=== PATIENT | male | born 1995 | race Caucasian/White ===

== ENCOUNTER 2018-06-07 23:00 | Emergency (ER) | payer OTHER ==
[2018-06-07 23:05] VITALS: BP 142/90; PULSE 114; RESP 18; TEMP 97
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
[2018-06-07] MEDS ORDERED: DIPH,PERTUS(ACELL)TETVAC-LF 0.5 ML VIAL IM ONE (23:26)
--- NOTE | 2018-06-07 23:49 | XR ---
EXAMINATION TYPE: XR knee 4V LT DATE OF EXAM: 06/07/2018 COMPARISON: NONE HISTORY: Knee pain TECHNIQUE: 4 views FINDINGS: I see no fracture nor dislocation. Joint spaces are normal. There is no sign of knee joint effusion. IMPRESSION: Negative left knee exam.
== END 2018-06-08 00:21 | disposition home or self-care (01) ==
LOC: EC 23:00
DX: S80.212A Abrasion, left knee, initial encounter (principal); S50.312A Abrasion of left elbow, initial encounter; F17.200 Nicotine dependence, unspecified, uncomplicated; Z23 Encounter for immunization; V43.52XA Car driver injured in collision with other type car in traffic accident, initial encounter; Y92.89 Other specified places as the place of occurrence of the external cause
CPT/HCPCS: 90471; 90715; 99284

== ENCOUNTER 2019-04-01 07:15 | Emergency (ER) | payer OTHER ==
[2019-04-01 07:23] VITALS: RESP 18; TEMP 98.5
[2019-04-01] MEDS ORDERED: KETOROLAC 60 MG/2 ML VIAL IM STA (07:24)
--- NOTE | 2019-04-01 07:49 | ED ---
General Adult HPI - General Chief complaint: Back Pain/Injury Stated complaint: chest pain Time Seen by Provider: 04/01/19 07:20 Source: patient, RN notes reviewed Mode of arrival: EMS Limitations: no limitations - History of Present Illness Initial comments: This is a 23-year-old male who presents emergency Department with right-sided thoracic pain. Patient states been hurting for 4 days. Patient states it hurts when he twists or bends. Patient states he has not had any injury that he knows of. Patient denies a cough patient denies shortness of breath per patient denies any anterior chest pressure. Patient denies any recent fever chills per patient denies any abdominal pain. Patient states the pain is on the right side of the thorax does go into the back a little bit. Patient denies any redness swelling or rashes in that area. - Related Data Previous Rx's Medication Instructions Recorded Ibuprofen [Motrin] 600 mg PO Q6HR PRN #20 tab 04/01/19 Allergies Allergy/AdvReac Type Severity Reaction Status Date / Time No Known Allergies Allergy Verified 04/01/19 08:04 Review of Systems ROS Statement: Those systems with pertinent positive or pertinent negative responses have been documented in the HPI. ROS Other: All systems not noted in ROS Statement are negative. Past Medical History Past Medical History: No Reported History History of Any Multi-Drug Resistant Organisms: None Reported Past Surgical History: No Surgical Hx Reported Past Psychological History: Anxiety Smoking Status: Current every day smoker Past Alcohol Use History: Occasional Past Drug Use History: Marijuana General Exam - General Exam Comments Initial Comments: GENERAL: Patient is well-developed and well-nourished. Patient is nontoxic and well-hy drated and is in mild distress. ENT: Neck is soft and supple. No significant lymphadenopathy is noted. Oropharynx is clear. Moist mucous membranes. Neck has full range of motion without eliciting any pain. EYES: The sclera were anicteric and conjunctiva were pink and moist. Extraocular movements were intact and pupils were equal round and reactive to light. Eyelids were unremarkable. PULMONARY: Unlabored respirations. Good breath sounds bilaterally. No audible rales rhonchi or wheezing was noted. CARDIOVASCULAR: There is a regular rate and rhythm without any murmurs gallops or rubs. Pain is not palpable however it can be elicited with him twisting either to the right or left. ABDOMEN: Soft and nontender with normal bowel sounds. SKIN: Skin is clear with no lesions or rashes and otherwise unremarkable. NEUROLOGIC: Patient is alert and oriented x3. Cranial nerves II through XII are grossly intact. Motor and sensory are also intact. Normal speech, volume and content. Symmetrical smile. MUSCULOSKELETAL: Normal extremities with adequate strength and full range of motion. LYMPHATICS: No significant lymphadenopathy is noted PSYCHIATRIC: Normal psychiatric evaluation. Limitations: no limitations Course Vital Signs 04/01/19 07:19 Temperature 98.5 F Pulse Rate 82 Respiratory 18 Rate Blood Pressure 143/117 O2 Sat by Pulse 96 Oximetry Medical Decision Making - Medical Decision Making EKG shows normal sinus rhythm at 82 bpm MN interval is 124 QRS is 96 QT interval 372 QTC is 434 per patient's EKG shows no ST segment elevation or depression or T wave abnormalities are noted. Disposition Clinical Impression: Chest wall pain Disposition: HOME SELF-CARE Condition: Good Prescriptions: Ibuprofen [Motrin] 600 mg PO Q6HR PRN #20 tab PRN Reason: For pain Is patient prescribed a controlled substance at d/c from ED?: No Referrals: Evelyn Fink MD [Primary Care Provider] - 1-2 days Time of Disposition: 08:12
--- NOTE | 2019-04-01 07:55 | XR ---
EXAMINATION TYPE: XR chest 2V DATE OF EXAM: 04/01/2019 COMPARISON: NONE HISTORY: Mid chest pain into back for 3 days. TECHNIQUE: Frontal and lateral views of the chest are obtained. FINDINGS: There is no focal air space opacity, pleural effusion, or pneumothorax seen. The cardiac silhouette size is within normal limits. The osseous structures are intact. IMPRESSION: No acute process.
[2019-04-01 08:24] VITALS: BP 119/82; PULSE 79
== END 2019-04-01 08:22 | disposition home or self-care (01) ==
LOC: EC 07:15
DX: R07.89 Other chest pain (principal); F17.200 Nicotine dependence, unspecified, uncomplicated
CPT/HCPCS: 93005; 71046; 99284; 96372; J1885

== ENCOUNTER → 2020-04-07 | Outpatient (CLI) | payer OTHER ==
--- NOTE | 2020-04-07 10:12 | US ---
EXAMINATION TYPE: US abdomen complete DATE OF EXAM: 04/07/2020 COMPARISON: NONE CLINICAL HISTORY: 24-year-old male R10.13 Epigastric pain; R12 Heartburn. Nausea. TECHNIQUE: Multiple sonographic images of the abdomen are obtained. FINDINGS: EXAM MEASUREMENTS: Liver Length: 15.4 cm Gallbladder Wall: 0.3 cm CBD: 0.4 cm Spleen: 10.7 cm Right Kidney: 9.9 x 4.0 x 5.4 cm Left Kidney: 11.3 x 5.3 x 4.8 cm Railroad Operating Engineer notes: *Technical limitations due to patient's body habitus and large amount of overlyin g bowel content Pancreas: Obscured by bowel gas Liver: Slightly coarsened and echogenic appearance. No focal lesion. Gallbladder: no evidence of stones Evidence for sonographic Ac's sign: no CBD: wnl Spleen: wnl Right Kidney: no evidence of hydronephrosis Left Kidney: no evidence of hydronephrosis Upper IVC: wnl Abd Aorta: wnl IMPRESSION: 1. Slightly coarsened and echogenic appearance of the liver. Correlate for possible underlying mild h epatic steatosis. 2. No gallstones or biliary ductal dilatation.
== END | disposition home or self-care (01) ==
LOC: RADUSWWP 07:51
PROVIDERS: ATTEND Family Medicine
DX: R93.2 Abnormal findings on diagnostic imaging of liver and biliary tract (principal)
CPT/HCPCS: 76700

== ENCOUNTER 2023-08-07 17:23 | Emergency (ER) | payer OTHER ==
[2023-08-07 18:14] LABS: Basophils # (A) 0.1 k/uL (0-0.2); Basophils % (A) 1 %; Eosinophils # (A) 0.1 k/uL (0-0.7); Eosinophils % (A) 1 %; HCT 51.9 % (39.0-53.0); HGB 17.1 gm/dL (13.0-17.5); Lymphocytes # (A) 3.6 k/uL (1.0-4.8); Lymphocytes % (A) 23 %; MCH 29.4 pg (25.0-35.0); MCHC 32.9 g/dL (31.0-37.0); MCV 89.4 fL (80.0-100.0); Mean Platelet Volume 10.2; Monocytes # (A) 0.6 k/uL (0-1.0); Monocytes % (A) 4 %; Neutrophils # (A) 10.9 k/uL (1.3-7.7); Neutrophils % (A) 70 %; Platelet Count 193 k/uL (150-450); RBC 5.81 m/uL (4.30-5.90); RDW 13.9 % (11.5-15.5); WBC 15.6 k/uL (3.8-10.6)
[2023-08-07 19:02] LABS: INR 0.9 (<1.2); Partial Thromboplastin Time 28.6 sec (22.0-30.0)
[2023-08-07 19:28] LABS: ALT 97 U/L (4-49); AST 59 U/L (17-59); African American GFR (CKD) >90 (>60 ml/min/1.73 sqM); Albumin 4.6 g/dL (3.5-5.0); Alkaline Phosphatase 82 U/L (38-126); Anion Gap 13 mmol/L; Blood Urea Nitrogen 14 mg/dL (9-20); Calcium 9.8 mg/dL (8.4-10.2); Carbon Dioxide 20 mmol/L (22-30); Chloride 105 mmol/L (98-107); Glucose 97 mg/dL (74-99); Magnesium 2.1 mg/dL (1.6-2.3); Non-African American GFR(CKD) >90 (>60 ml/min/1.73 sqM); Potassium 4.4 mmol/L (3.5-5.1); Sodium 138 mmol/L (137-145); Total Bilirubin 0.5 mg/dL (0.2-1.3); Total Protein 7.6 g/dL (6.3-8.2)
--- NOTE | 2023-08-07 20:11 | XR ---
EXAMINATION TYPE: XR chest 2V DATE OF EXAM: 08/07/2023 6:08 PM CLINICAL INDICATION:Male, 27 years old with history of Chest Pain; [facility] COMPARISON: 04/01/2019 TECHNIQUE: XR chest 2V. Frontal PA and lateral views of the chest. FINDINGS: Lines/Tubes: None. Heart/mediastinum: Cardiomediastinal silhouette is well defined. Heart size is normal. Mediastinum appears normal. Pulmonary vascularity: Not increased, Lungs/Pleura: There is no evidence of pleural effusion, focal consolidation, or pneumothorax. Musculoskeletal: No acute osseous abnormality demonstrated in the limits of the exam. Other findings: None. IMPRESSION: No acute findings, or significant interval change.
--- NOTE | 2023-08-07 20:15 | ED ---
Chest Pain HPI - General Chief Complaint: Chest Pain Stated Complaint: SHARP CHEST PAINS Time Seen by Provider: 08/07/23 20:14 Source: patient Mode of arrival: wheelchair Limitations: no limitations - History of Present Illness Initial Comments: 27-year-old male presents the emergency Department today with complaint of sharp pain in the right upper chest since yesterday. Patient reports that he has had mild upper respiratory type symptoms with cough lately he's also recently began a workout routine an attempt to lose weight. Patient has no personal cardiac history. No history of asthma or COPD. He's had no chest wall trauma. Patient describes the pain as a sharp stabbing in the right upper chest. Occurs spontaneously without any specific types of provocation though symptoms to be worse with movement. Pain is described as severe and sharp lasting only seconds and then improving. - Related Data Previous Rx's Medication Instructions Recorded Ibuprofen [Motrin] 600 mg PO Q6HR PRN #20 tab 04/01/19 Ibuprofen [Motrin] 600 mg PO Q6HR PRN #30 tab 08/07/23 Allergies Allergy/AdvReac Type Severity Reaction Status Date / Time No Known Allergies Allergy Verified 08/07/23 17:46 Review of Systems ROS Statement: Those systems with pertinent positive or pertinent negative responses have been documented in the HPI. ROS Other: All systems not noted in ROS Statement are negative. Past Medical History Past Medical History: Hypertension History of Any Multi-Drug Resistant Organisms: None Reported Past Surgical History: No Surgical Hx Reported Past Psychological History: Anxiety Smoking Status: Current every day smoker Past Alcohol Use History: Daily Past Drug Use History: Marijuana General Exam - General Exam Comments Initial Comments: Physical Exam GENERAL: Patient is well-developed and well-nourished. Patient is nontoxic and well-hydrated Patient appears well but will at times clutch his right chest and flail forward stating that he is experiencing the right sided chest pain HENT: Normocephalic, Atraumatic. EYES: PERRL, EOMI PULMONARY: Unlabored respirations. CARDIOVASCULAR: RRR Warm and well perfused extremities ABDOMEN: Non-distended SKIN: No rashes or bruising : Deferred NEUROLOGIC: Alert and oriented Normal speech Normal gait MUSCULOSKELETAL: Moving all extremities with no apparent injury PSYCHIATRIC: No SI/HI Limitations: no limitations Course Vital Signs 08/07/23 08/07/23 08/07/23 17:43 21:07 22:32 Temperature 98.5 F 98.2 F Pulse Rate 101 H 94 96 Respiratory 16 18 18 Rate Blood Pressure 157/109 137/99 136/88 O2 Sat by Pulse 97 97 98 Oximetry Chest Pain MDM - MDM Was pt. sent in by a medical professional or institution (, SHELLY, PRODUCTION ARTIST, urgent care, hospital, or custodial...) When possible be specific @ -No Did you speak to anyone other than the patient for history (EMS, parent, family, police, friend...)? What history was obtained from this source @ -Patient's mother at bedside Did you review nursing and triage notes (agree or disagree)? Why? @ -I reviewed and agree with nursing and triage notes Were old charts reviewed (outside hosp., previous admission, EMS record, old EKG, old radiological studies, urgent care reports/EKG's, custodial records)? Report findings @ -No old charts were reviewed Differential Diagnosis (chest pain, altered mental status, abdominal pain women, abdominal pain men, vaginal bleeding, weakness, fever, dyspnea, syncope, headache, dizziness, GI bleed, back pain, seizure, CVA, palpatations, mental health)? @ -not applicable EKG interpreted by me (3pts min.). @ -As above X-rays interpreted by me (1pt min.). @ -No acute findings CT interpreted by me (1pt min.). @ -None done U/S interpreted by me (1pt. min.). @ -None done What testing was considered but not performed or refused? (CT, X-rays, U/S, labs)? Why? @ -None What meds were considered but not given or refused? Why? @ -None Did you discuss the management of the patient with other professionals (kaity marie i.e. SHELLY Jung, PRODUCTION ARTIST, lab, RT, psych nurse, social worker psychiatric, journal clerk, teacher, executive vice president and chief operating officer, medical case worker)? Give summary @ -No Was smoking cessation discussed for >3mins.? @ -No Was critical care preformed (if so, how long)? @ -No Were there social determinants of health that impacted care today? How? (Homelessness, low income, unemployed, alcoholism, drug addiction, transportation, low edu. Level, literacy, decrease access to med. care, retirement, rehab)? @ -No Was there de-escalation of care discussed even if they declined (Discuss DNR or withdrawal of care, Hospice)? DNR status @ -No What co-morbidities impacted this encounter? (DM, HTN, Smoking, COPD, CAD, Cancer, CVA, ARF, Chemo, Hep., AIDS, mental health diagnosis, sleep apnea, morbid obesity)? @ -Obesity Was patient admitted / discharged? Hospital course, mention meds given and route, prescriptions, significant lab abnormalities, going to OR and other pertinent info. @ -Discharged The patient was seen and evaluated, history is obtained from patient and mother. Patient with random sharp stabbing pain in the right upper quadrant that seems to be worse with movement. Not reproducible with palpation. No associated diaphoresis lightheadedness or shortness of breath. No cardiac history. No left-sided chest pain. No pain is worse with exertion and resolves with rest. Patient's workup was negative, d-dimer was negative, patient reported no improvement in his pain after Toradol he was given a single [place]. At this time workup is negative and he is stable for discharge home. Undiagnosed new problem with uncertain prognosis? @ -No Drug Therapy requiring intensive monitoring for toxicity (Heparin, Nitro, Insulin, Cardizem)? @ -No Were any procedures done? @ -No Diagnosis/symptom? @ -Atypical chest pain Acute, or Chronic, or Acute on Chronic? @ -default Uncomplicated (without systemic symptoms) or Complicated (systemic symptoms)? @ -default Side effects of treatment? @ -No Exacerbation, Progression, or Severe Exacerbation? @ -No Poses a threat to life or bodily function? How? (Chest pain, [place], [place], pneumonia, PE, COPD, DKA, ARF, appy, cholecystitis, CVA, Diverticulitis, Homicidal, Suicidal, threat to staff... and all critical care pts) @ -No Disposition Clinical Impression: Atypical chest pain, Anterior pleuritic pain Disposition: HOME SELF-CARE Condition: Stable Instructions (If sedation given, give patient instructions): Pleurisy (DC) Prescriptions: Ibuprofen [Motrin] 600 mg PO Q6HR PRN #30 tab PRN Reason: Pain Is patient prescribed a controlled substance at d/c from ED?: No Referrals: Evelyn Fink MD [Primary Care Provider] - 1-2 days
[2023-08-07] MEDS ORDERED: KETOROLAC 15 MG/ML 1 ML VIAL IM STA (21:09)
[2023-08-07 21:23] VITALS: RESP 18; TEMP 98.2
[2023-08-07] MEDS ORDERED: HYDROcodone/APAP 5-325MG 1 EACH TAB PO STA (22:13)
[2023-08-07 22:34] VITALS: BP 136/88; PULSE 96
== END 2023-08-07 22:37 | disposition home or self-care (01) ==
LOC: EC 17:23
DX: R07.89 Other chest pain (principal); I10 Essential (primary) hypertension; Z86.59 Personal history of other mental and behavioral disorders; F17.200 Nicotine dependence, unspecified, uncomplicated; F12.90 Cannabis use, unspecified, uncomplicated
CPT/HCPCS: 36415; 93005; 85379; 80053; 83735; 84484; 85025; 85610; 85730; 71046; 99285; 96372; J1885

== ENCOUNTER 2023-08-21 02:13 | Emergency (ER) | payer OTHER ==
--- NOTE | 2023-08-21 05:38 | ED ---
Psych HPI - General Source: police Mode of arrival: ambulatory <Susan Carvalho - Last Filed: 08/21/23 06:33> <Giovanny Villanueva - Last Filed: 08/21/23 10:14> - General Chief Complaint: Psychiatric Symptoms Stated Complaint: Petition Time Seen by Provider: 08/21/23 05:23 - History of Present Illness Initial Comments: When he 7-year-old male with history of depression, history of suicide attempts of the teen presents to the ER today with his mother and little brother for psychiatric evaluation. Patient states that about a month ago him and his fiance at that time experienced a miscarriage and shortly after she broke up with him. Patient reports that since that time is been drinking very heavily sometimes 2/5 a day. Patient states that he is feeling very depressed. When he is intoxicated patient does become suicidal is not made any attempts at suicide. Mom reports that they establish with the social workers [facility] yesterday but she became concerned for patient safety during the evening and brought in the hospital for evaluation. And states that while he was drinking he planned to kill himself by jumping into a [place] river. (Susan Carvalho) - Related Data Previous Rx's Medication Instructions Recorded Ibuprofen [Motrin] 600 mg PO Q6HR PRN #20 tab 04/01/19 Ibuprofen [Motrin] 600 mg PO Q6HR PRN #30 tab 08/07/23 Allergies Allergy/AdvReac Type Severity Reaction Status Date / Time No Known Allergies Allergy Verified 08/21/23 02:50 Review of Systems ROS Other: All systems not noted in ROS Statement are negative. <Susan Carvalho - Last Filed: 08/21/23 06:33> ROS Other: All systems not noted in ROS Statement are negative. <Giovanny Villanueva - Last Filed: 08/21/23 10:14> ROS Statement: Those systems with pertinent positive or pertinent negative responses have been documented in the HPI. Past Medical History Past Medical History: Hypertension History of Any Multi-Drug Resistant Organisms: None Reported Past Surgical History: No Surgical Hx Reported Past Psychological History: Anxiety, Depression Smoking Status: Current every day smoker Past Alcohol Use History: Abuse, Daily, Heavy Past Drug Use History: Marijuana <Susan Carvalho - Last Filed: 08/21/23 06:33> General Exam Limitations: no limitations <Susan Carvalho - Last Filed: 08/21/23 06:33> - General Exam Comments Initial Comments: Physical Exam GENERAL: Unkempt appearance Patient is well-developed and well-nourished. HENT: Normocephalic, Atraumatic. EYES: PERRL, EOMI PULMONARY: Unlabored respirations. CARDIOVASCULAR: RRR Warm and well perfused extremities ABDOMEN: Non-distended SKIN: No rashes or bruising : Deferred NEUROLOGIC: Alert and oriented Normal speech Normal gait MUSCULOSKELETAL: Moving all extremities with no apparent injury PSYCHIATRIC: Depressed, suicidal (Susan Carvalho) Course Vital Signs 08/21/23 08/21/23 02:47 09:00 Temperature 98.6 F 98.8 F Pulse Rate 115 H 100 Respiratory 20 18 Rate Blood Pressure 123/93 135/78 O2 Sat by Pulse 96 95 Oximetry Medical Decision Making <Susan Carvalho - Last Filed: 08/21/23 06:33> - Lab Data Result diagrams: 08/21/23 05:41 08/21/23 05:41 <Giovanny Villanueva D - Last Filed: 08/21/23 10:14> - Medical Decision Making Was pt. sent in by a medical professional or institution (SHELLY Jung, LIFT TRUCK MECHANIC, urgent care, hospital, or intermediate...) When possible be specific @ -No Did you speak to anyone other than the patient for history (EMS, parent, family, police, friend...)? What history was obtained from this source @ -Mother Did you review nursing and triage notes (agree or disagree)? Why? @ -[I reviewed and agree with nursing and triage notes] Were old charts reviewed (outside hosp., previous admission, EMS record, old EKG, old radiological studies, urgent care reports/EKG's, intermediate records)? Report findings @ -[No old charts were reviewed] Differential Diagnosis (chest pain, altered mental status, abdominal pain women, abdominal pain men, vaginal bleeding, weakness, fever, dyspnea, syncope, headache, dizziness, GI bleed, back pain, seizure, CVA, palpatations, mental health)? @ -Differential Mental Health Depression, anxiety, bipolar, psychosis, schizophrenia, borderline personality, situational depression, adjustment disorder, behavioral disorder, brain tumor, malingering, substance abuse, encephalopathy, medication reaction, dementia, hypothyroidism, degenerative neurologic disorder, lupus.... This is not meant to be all-inclusive list EKG interpreted by me (3pts min.). @ -[As above] X-rays interpreted by me (1pt min.). @ -[None done] CT interpreted by me (1pt min.). @ -[None done] U/S interpreted by me (1pt. min.). @ -[None done] What testing was considered but not performed or refused? (CT, X-rays, U/S, labs)? Why? @ -[None] What meds were considered but not given or refused? Why? @ -[None] Did you discuss the management of the patient with other professionals (professionals i.e. , PA, LIFT TRUCK MECHANIC, lab, RT, psych nurse, social services analyst, reaming machine tender, teacher, assignment officer, pillowcase folder)? Give summary @ -[No] Was smoking cessation discussed for >3mins.? @ -[No] Was critical care preformed (if so, how long)? @ -[No] Were there social determinants of health that impacted care today? How? (Homelessness, low income, unemployed, alcoholism, drug addiction, transportation, low edu. Level, literacy, decrease access to med. care, nursing home, rehab)? @ -Alcoholism Was there de-escalation of care discussed even if they declined (Discuss DNR or withdrawal of care, Hospice)? DNR status @ -[No] What co-morbidities impacted this encounter? (DM, HTN, Smoking, COPD, CAD, Cancer, CVA, ARF, Chemo, Hep., AIDS, mental health diagnosis, sleep apnea, morbid obesity)? @ -[facility] signed out to Dr Villanueva at 7am (Susan Carvalho) Patient care is signed out to me by previous shift physician, Dr. Carvalho. Briefly, patient with 27-year-old female presenting with suicidal ideation and suicidal behavior. Parents and also follow-up pending EPS recommendations. Was notified at 10:10 AM that EPS recommended discharge. With this disposition plan. Patient discharged. (Giovanny Villanueva) - Lab Data Lab Results 08/21/23 08/21/23 08/21/23 Range/Units 05:41 05:41 05:41 WBC 13.3 H (3.8-10.6) k/uL RBC 5.81 (4.30-5.90) m/uL Hgb 17.2 (13.0-17.5) gm/dL Hct 51.9 (39.0-53.0) % MCV 89.2 (80.0-100.0) fL MCH 29.7 (25.0-35.0) pg MCHC 33.2 (31.0-37.0) g/dL RDW 14.1 (11.5-15.5) % Plt Count 197 (150-450) k/uL MPV 10.6 Neutrophils % 52 % Lymphocytes % 42 % Monocytes % 4 % Eosinophils % 1 % Basophils % 1 % Neutrophils # 6.9 (1.3-7.7) k/uL Lymphocytes # 5.5 H (1.0-4.8) k/uL Monocytes # 0.5 (0-1.0) k/uL Eosinophils # 0.1 (0-0.7) k/uL Basophils # 0.1 (0-0.2) k/uL Manual Slide Review Performed Reactive Lymphocytes Present Sodium 141 (137-145) mmol/L Potassium 3.8 (3.5-5.1) mmol/L Chloride 103 (98-107) mmol/L Carbon Dioxide 21 L (22-30) mmol/L Anion Gap 17 mmol/L BUN 12 (9-20) mg/dL Creatinine 0.75 (0.66-1.25) mg/dL Est GFR (CKD-EPI)AfAm >90 (>60 ml/min/1.73 sqM) Est GFR (CKD-EPI)NonAf >90 (>60 ml/min/1.73 sqM) Glucose 139 H (74-99) mg/dL Calcium 9.0 (8.4-10.2) mg/dL Total Bilirubin 0.3 (0.2-1.3) mg/dL AST 56 (17-59) U/L ALT 115 H (4-49) U/L Alkaline Phosphatase 84 (38-126) U/L Total Protein 7.1 (6.3-8.2) g/dL Albumin 4.4 (3.5-5.0) g/dL Salicylates <1.0 mg/dL Acetaminophen <10.0 ug/mL Serum Alcohol 99 mg/dL Influenza Type A (PCR) Not Detected (Not Detectd) Influenza Type B (PCR) Not Detected (Not Detectd) RSV (PCR) Not Detected (Not Detectd) SARS-CoV-2 (PCR) Not Detected (Not Detectd) Disposition <Susan Carvalho P - Last Filed: 08/21/23 06:33> Is patient prescribed a controlled substance at d/c from ED?: No <Giovanny Villanueva - Last Filed: 08/21/23 10:14> Clinical Impression: Suicidal ideation Disposition: HOME SELF-CARE Condition: Fair Instructions (If sedation given, give patient instructions): Suicide Prevention (ED) Referrals: Evelyn Fink MD [Primary Care Provider] - 1-2 days
[2023-08-21 06:36] LABS: Basophils # (A) 0.1 k/uL (0-0.2); Basophils % (A) 1 %; Eosinophils # (A) 0.1 k/uL (0-0.7); Eosinophils % (A) 1 %; HCT 51.9 % (39.0-53.0); HGB 17.2 gm/dL (13.0-17.5); MCH 29.7 pg (25.0-35.0); MCHC 33.2 g/dL (31.0-37.0); MCV 89.2 fL (80.0-100.0); Mean Platelet Volume 10.6; Monocytes # (A) 0.5 k/uL (0-1.0); Monocytes % (A) 4 %; Neutrophils # (A) 6.9 k/uL (1.3-7.7); Neutrophils % (A) 52 %; Platelet Count 197 k/uL (150-450); RBC 5.81 m/uL (4.30-5.90); RDW 14.1 % (11.5-15.5); WBC 13.3 k/uL (3.8-10.6)
[2023-08-21 06:38] LABS: ALT 115 U/L (4-49); AST 56 U/L (17-59); Acetaminophen <10.0 ug/mL; African American GFR (CKD) >90 (>60 ml/min/1.73 sqM); Albumin 4.4 g/dL (3.5-5.0); Alkaline Phosphatase 84 U/L (38-126); Anion Gap 17 mmol/L; Blood Urea Nitrogen 12 mg/dL (9-20); Carbon Dioxide 21 mmol/L (22-30); Chloride 103 mmol/L (98-107); Glucose 139 mg/dL (74-99); Non-African American GFR(CKD) >90 (>60 ml/min/1.73 sqM); Potassium 3.8 mmol/L (3.5-5.1); Salicylate <1.0 mg/dL; Sodium 141 mmol/L (137-145); Total Bilirubin 0.3 mg/dL (0.2-1.3); Total Protein 7.1 g/dL (6.3-8.2)
[2023-08-21 06:41] LABS: Alcohol 99 mg/dL
[2023-08-21 06:42] LABS: Lymphocytes # (A) 5.5 k/uL (1.0-4.8)
[2023-08-21 08:05] LABS: Reactive Lymphocytes Present
[2023-08-21 08:06] LABS: Lymphocytes % (A) 42 %
[2023-08-21 09:24] VITALS: BP 135/78; PULSE 100; RESP 18; TEMP 98.8
== END 2023-08-21 11:30 | disposition home or self-care (01) ==
LOC: EC 02:13
DX: R45.851 Suicidal ideations (principal); I10 Essential (primary) hypertension; F17.200 Nicotine dependence, unspecified, uncomplicated; F12.90 Cannabis use, unspecified, uncomplicated; Z86.59 Personal history of other mental and behavioral disorders; Z20.822 Contact with and (suspected) exposure to COVID-19
CPT/HCPCS: 82075; 36415; 80053; 85025; 80143; 87636; 80179; 99285; G0480; 80320

== ENCOUNTER 2024-12-03 22:59 | Emergency (ER) | payer OTHER ==
--- NOTE | 2024-12-03 23:35 | ED ---
Chest Pain HPI - General Chief Complaint: Chest Pain Stated Complaint: Chest pain Time Seen by Provider: 12/03/24 23:20 Source: patient Mode of arrival: ambulatory Limitations: no limitations - History of Present Illness Initial Comments: This patient is a 29-year-old man who presents to have evaluation of pain along the sternal border bilaterally. He describes it as sharp, there is also tenderness when he presses there. He noted that his heart was racing. The patient has not noted any relieving factors. It is constant, mild intensity currently but it was moderate earlier today. Denies associated symptoms. Patient relates that he has had hypertension for about 4 years, it was untreated for part of that time but he has now established with physician and they are working on getting better blood pressure control for him. MD Complaint: chest pain -: hour(s) Onset: during rest Pain Location: substernal Pain Radiation: none Severity: mild Quality: aching, sharp Consistency: constant Improves With: nothing Worsens With: palpation, movement Treatments Prior to Arrival: none - Related Data Previous Rx's Medication Instructions Recorded Ibuprofen [Motrin] 600 mg PO Q6HR PRN #20 tab 04/01/19 Ibuprofen [Motrin] 600 mg PO Q6HR PRN #30 tab 08/07/23 Ibuprofen 800 mg PO Q8H #21 tab 12/04/24 Allergies Allergy/AdvReac Type Severity Reaction Status Date / Time No Known Allergies Allergy Verified 12/03/24 23:11 Review of Systems ROS Statement: Those systems with pertinent positive or pertinent negative responses have been documented in the HPI. ROS Other: All systems not noted in ROS Statement are negative. Constitutional: Denies: fever, chills, weakness Respiratory: Denies: cough, dyspnea Cardiovascular: Reports: chest pain, palpitations. Denies: orthopnea, edema, syncope Gastrointestinal: Denies: abdominal pain, nausea, vomiting, diarrhea Genitourinary: Denies: dysuria, hematuria Musculoskeletal: Denies: back pain Skin: Denies: rash Neurological: Denies: headache, weakness EKG Findings - EKG Results: EKG: interpreted by GIBRAN, sinus rhythm, normal QRS EKG shows: tachycardia (Rate 130 bpm) - Blocks, [place], Hypertrophy, ST Abn: QRS axis and voltage: right axis deviation (+90 to +180) Repolarization changes or abnormalities: nonspecific abnormality, ST segment, and/or T wave Past Medical History Past Medical History: Hypertension History of Any Multi-Drug Resistant Organisms: None Reported Past Surgical History: No Surgical Hx Reported Past Psychological History: Anxiety, Depression Smoking Status: Current every day smoker Past Alcohol Use History: Abuse, Daily, Heavy Past Drug Use History: Marijuana General Exam Limitations: no limitations General appearance: alert, in no apparent distress Head exam: Present: atraumatic, normocephalic Eye exam: Present: normal appearance. Absent: scleral icterus, conjunctival injection ENT exam: Present: normal oropharynx Neck exam: Present: normal inspection Respiratory exam: Present: normal lung sounds bilaterally, chest wall tenderness. Absent: respiratory distress, wheezes, rales, rhonchi, stridor, accessory muscle use Cardiovascular Exam: Present: normal rhythm, tachycardia, normal heart sounds. Absent: systolic murmur, diastolic murmur, rubs, gallop GI/Abdominal exam: Present: soft. Absent: distended, tenderness, guarding, rebound, rigid, mass, pulsatile mass Extremities exam: Present: normal inspection, normal capillary refill. Absent: pedal edema, calf tenderness Back exam: Present: normal inspection. Absent: CVA tenderness (R), CVA tenderness (L) Neurological exam: Present: alert Skin exam: Present: warm, dry, intact, normal color. Absent: rash Course Vital Signs 12/03/24 12/04/24 12/04/24 23:11 01:00 02:38 Temperature 97.6 F 98.0 F Pulse Rate 132 H 103 H 115 H Respiratory 18 10 L 18 Rate Blood Pressure 171/106 144/77 130/81 O2 Sat by Pulse 95 96 98 Oximetry Chest Pain MDM - MDM The patient had chest x-ray that I interpreted as negative for acute infiltrate, pneumothorax, congestive heart failure. Was pt. sent in by a medical professional or institution (, PA, REDIPPER, urgent care, hospital, or penitentiary...) When possible be specific @ -[No] Did you speak to anyone other than the patient for history (EMS, parent, family, police, friend...)? What history was obtained from this source @ -[No] Did you review nursing and triage notes (agree or disagree)? Why? @ -[I reviewed and agree with nursing and triage notes] Were old charts reviewed (outside hosp., previous admission, EMS record, old EKG, old radiological studies, urgent care reports/EKG's, penitentiary records)? Report findings @ -[No old charts were reviewed] Differential Diagnosis (chest pain, altered mental status, abdominal pain women, abdominal pain men, vaginal bleeding, weakness, fever, dyspnea, syncope, headache, dizziness, GI bleed, back pain, seizure, CVA, palpatations, mental health, musculoskeletal)? @ -[Differential Chest Pain: Stable Angina, Unstable Angina, STEMI, NSTEMI Aortic Dissection, Pneumothorax, Musculoskeletal, Esophageal Spasm GERD, Cholecystitis, Pancreatitis, Zoster, this is not meant to be an all-inclusive list. EKG interpreted by me (3pts min.). @ -[I interpreted as above] X-rays interpreted by me (1pt min.). @ -[I interpreted as above CT interpreted by me (1pt min.). @ -[None done] U/S interpreted by me (1pt. min.). @ -[None done] What testing was considered but not performed or refused? (CT, X-rays, U/S, labs)? Why? @ -[None] What meds were considered but not given or refused? Why? @ -[None] Did you discuss the management of the patient with other professionals (professionals i.e. , PA, REDIPPER, lab, RT, psych nurse, psych social worker, meter repairer helper, teacher, hospital chief financial officer, dependency case manager)? Give summary @ -[No] Was smoking cessation discussed for >3mins.? @ -[No] Was critical care preformed (if so, how long)? @ -[No] Were there social determinants of health that impacted care today? How? (Homelessness, low income, unemployed, alcoholism, drug addiction, transportation, low edu. Level, literacy, decrease access to med. care, longterm, rehab)? @ -[No] Was there de-escalation of care discussed even if they declined (Discuss DNR or withdrawal of care, Hospice)? DNR status @ -[No] What co-morbidities impacted this encounter? (DM, HTN, Smoking, COPD, CAD, Cancer, CVA, ARF, Chemo, Hep., AIDS, mental health diagnosis, sleep apnea, morbid obesity)? @ -[Hypertension Was patient admitted / discharged? Hospital course, mention meds given and route, prescriptions, significant lab abnormalities, going to OR and other pertinent info. @ -[Patient is a 29-year-old woman with history of hypertension presenting to have evaluation of chest pain. The patient history and physical is benign other than chronic hypertension which is elevated on arrival. The patient's workup is unremarkable and she did have good relief of symptoms and improvement in her blood pressure. At this point stable to have further evaluation and treatment as outpatient. Discussed return parameters Undiagnosed new problem with uncertain prognosis? @ -[No] Drug Therapy requiring intensive monitoring for toxicity (Heparin, Nitro, Insulin, Cardizem)? @ -[No] Were any procedures done? @ -[No] Diagnosis/symptom? @ -[Acute chest pain Acute on chronic hypertension Acute, or Chronic, or Acute on Chronic? @ -[ Uncomplicated (without systemic symptoms) or Complicated (systemic symptoms)? @ -[Uncomplicated Side effects of treatment? @ -[No] Exacerbation, Progression, or Severe Exacerbation? @ -[No] Poses a threat to life or bodily function? How? (Chest pain, [place], [place], pneumonia, PE, COPD, DKA, ARF, appy, cholecystitis, CVA, Diverticulitis, Homicidal, Suicidal, threat to staff... and all critical care pts) @ -[There is risk associated with chronic hypertension and have stressed that patient must follow-up to have this adequately treated also to have cardiology follow-up All treatments are based on ideal body weight as in ED triage Disposition Clinical Impression: Chest wall pain, Hypertension Disposition: HOME SELF-CARE Condition: Good Instructions (If sedation given, give patient instructions): Costochondritis (ED) Prescriptions: Ibuprofen 800 mg PO Q8H #21 tab Is patient prescribed a controlled substance at d/c from ED?: No Referrals: Evelyn Fink MD [Primary Care Provider] - 1-2 days
[2024-12-04] MEDS: SODIUM CHLORIDE 0.9% 1,000 ML IV ONE (00:58)
[2024-12-04 01:00] LABS: INR 0.9 (<1.2); Partial Thromboplastin Time 25.1 sec (22.0-30.0); Prothrombin Time 9.9 sec (10.0-12.5)
[2024-12-04] MEDS: ASPIRIN 81 MG PO STA (01:00)
[2024-12-04] MEDS: NITROGLYCERIN SL TABS 0.4 MG TAB SUBLINGUAL STA (01:01)
[2024-12-04] MEDS: LORazepam 2 MG/ML INJ IV STA (01:01)
[2024-12-04 01:11] LABS: ALT 61 U/L (4-49); AST 46 U/L (17-59); African American GFR (CKD) >90 (>60 ml/min/1.73 sqM); Albumin 4.1 g/dL (3.5-5.0); Alkaline Phosphatase 74 U/L (38-126); Anion Gap 9 mmol/L; Blood Urea Nitrogen 17 mg/dL (9-20); Calcium 9.3 mg/dL (8.4-10.2); Carbon Dioxide 24 mmol/L (22-30); Chloride 104 mmol/L (98-107); Glucose 106 mg/dL (74-99); Non-African American GFR(CKD) >90 (>60 ml/min/1.73 sqM); Potassium 4.1 mmol/L (3.5-5.1); Sodium 137 mmol/L (137-145); Total Bilirubin 0.5 mg/dL (0.2-1.3); Total Protein 6.8 g/dL (6.3-8.2)
[2024-12-04 01:18] LABS: Basophils # (A) 0.05 10*3/uL (0.00-0.10); Basophils % (A) 0.3 %; Eosinophils # (A) 0.14 10*3/uL (0.04-0.35); HCT 48.3 % (39.6-50.0); HGB 16.7 g/dL (13.0-17.0); Lymphocytes # (A) 5.46 10*3/uL (0.90-5.00); Lymphocytes % (A) 37.3 %; MCH 29.9 pg (27.0-32.0); MCHC 34.6 g/dL (32.0-37.0); MCV 86.6 fL (80.0-97.0); Monocytes # (A) 0.72 10*3/uL (0.20-1.00); Monocytes % (A) 4.9 %; Neutrophils # (A) 8.23 10*3/uL (1.80-7.70); Neutrophils % (A) 56.2 %; Platelet Count 211 10*3/uL (140-440); RBC 5.58 10*6/uL (4.40-5.60); RDW 13.2 % (11.5-14.5); WBC 14.64 10*3/uL (4.50-10.00)
--- NOTE | 2024-12-04 01:51 | XR ---
EXAM: XR Chest, 2 Views CLINICAL HISTORY: ITS.REASON XR Reason: Chest Pain TECHNIQUE: Frontal and lateral views of the chest. COMPARISON: 12/03/2024. FINDINGS: Lungs: Unremarkable. No consolidative changes or pleural effusions. Pleural space: See above. Heart: Heart is normal in size. No cardiomegaly. Mediastinum: Unremarkable. Normal mediastinal contour. Bones/joints: Osseous structures and soft tissues are unremarkable. No acute fracture. IMPRESSION: No active disease, unchanged.
[2024-12-04 02:40] VITALS: BP 130/81; PULSE 115; RESP 18; TEMP 98
== END 2024-12-04 02:43 | disposition home or self-care (01) ==
LOC: EC 22:59
DX: I10 Essential (primary) hypertension (principal); F17.200 Nicotine dependence, unspecified, uncomplicated
CPT/HCPCS: 99285; 96374; 96361; 36415; 93005; 85379; 80053; 83735; 84484; 85025; 85610; 85730; 71046; J2060

== ENCOUNTER → 2024-12-03 | Outpatient (CLI) | payer OTHER ==
--- NOTE | 2024-12-03 22:09 | XR ---
EXAMINATION TYPE: XR chest 2V DATE OF EXAM: 12/03/2024 3:41 PM COMPARISON: 08/07/2023 CLINICAL INDICATION: Male, 29 years old with history of R00.0 TACHY R03.0 ELEV BP R07.9 Chest Pain, TECHNIQUE: XR chest 2V view(s) obtained. FINDINGS: The heart size is normal. The pulmonary vasculature is normal. The lungs are clear. IMPRESSION: 1. No acute pulmonary process. [facility], , 12/03/2024 10:07 PM
== END | disposition home or self-care (01) ==
LOC: RADXRMAIN 15:18
PROVIDERS: ATTEND Family Medicine
DX: R00.0 Tachycardia, unspecified (principal); R03.0 Elevated blood-pressure reading, without diagnosis of hypertension
CPT/HCPCS: 71046

== ENCOUNTER 2024-12-14 18:36 | Observation (INO) | payer MEDICARE, OTHER ==
--- NOTE | 2024-12-14 18:47 | ED ---
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) Previous Visits for Alcohol Intoxication?: Yes Recent Trauma: Yes Associated Symptoms: nausea, vomiting, diaphoresis, tremors, depression Treatments Prior to Arrival: none Chronic Alcohol Use: Yes - Related Data Previous Rx's Medication Instructions Recorded Ibuprofen [Motrin] 600 mg PO Q6HR PRN #20 tab 04/01/19 Ibuprofen [Motrin] 600 mg PO Q6HR PRN #30 tab 08/07/23 Ibuprofen 800 mg PO Q8H #21 tab 12/04/24 Allergies Allergy/AdvReac Type Severity Reaction Status Date / Time No Known Allergies Allergy Verified 12/14/24 16:04 Review of Systems ROS Statement: Those systems with pertinent positive or pertinent negative responses have been documented in the HPI. ROS Other: All systems not noted in ROS Statement are negative. Past Medical History Past Medical History: Hypertension History of Any Multi-Drug Resistant Organisms: None Reported Past Surgical History: No Surgical Hx Reported Past Psychological History: Anxiety, Depression Smoking Status: Current every day smoker Past Alcohol Use History: Abuse, Daily, Heavy Past Drug Use History: Marijuana General Exam Limitations: altered mental status General appearance: alert, in no apparent distress, anxious, in distress Head exam: Present: atraumatic, normocephalic, normal inspection Eye exam: Present: normal appearance, PERRL, EOMI. Absent: scleral icterus, conjunctival injection, periorbital swelling ENT exam: Present: normal exam, mucous membranes moist Neck exam: Present: normal inspection. Absent: tenderness, meningismus, lymphadenopathy Respiratory exam: Present: normal lung sounds bilaterally. Absent: respiratory distress, wheezes, rales, rhonchi, stridor Cardiovascular Exam: Present: regular rate, normal rhythm, normal heart sounds. Absent: systolic murmur, diastolic murmur, rubs, gallop, clicks GI/Abdominal exam: Present: soft, normal bowel sounds. Absent: distended, tenderness, guarding, rebound, rigid Extremities exam: Present: normal inspection, full ROM, normal capillary refill. Absent: tenderness, pedal edema, joint swelling, calf tenderness Back exam: Present: normal inspection Neurological exam: Present: alert, oriented X3, CN II-XII intact Psychiatric exam: Present: normal affect, normal mood Skin exam: Present: warm, dry, intact, normal color. Absent: rash Course Vital Signs 12/14/24 12/14/24 12/14/24 18:38 19:15 20:59 Temperature 98.0 F Pulse Rate 111 H 104 H 96 Respiratory 18 26 H 18 Rate Blood Pressure 149/96 155/104 133/87 O2 Sat by Pulse 98 97 97 Oximetry - Reevaluation(s) Reevaluation #1: 12/14/24 19:32 Medical records reviewed Reevaluation #2: 12/14/24 21:27 Patient symptoms unchanged here in the ER still feeling nauseous uneasy anxious Reevaluation #3: 12/14/24 21:27 Patient informed of results and questions answered Reevaluation #4: Was pt. sent in by a medical professional or institution (, PA, PAYROLL TAX ANALYST, urgent care, hospital, or skilled nursing...) When possible be specific @ -no Did you speak to anyone other than the patient for history (EMS, parent, family, police, friend...)? What history was obtained from this source @ -no Did you review nursing and triage notes (agree or disagree)? Why? @ -agree Are old charts reviewed (outside hosp., previous admission, EMS record, old EKG, old radiological studies, urgent care reports/EKG's, skilled nursing records)? Report findings @ -yes Differential Diagnosis (chest pain, altered mental status, abdominal pain women, abdominal pain men, vaginal bleeding, weakness, fever, dyspnea, syncope, headache, dizziness, GI bleed, back pain, seizure, CVA, palpatations, mental h ealth, musculoskeletal)? @ -prior EKG interpreted by me (3pts min.). @ -yes X-rays interpreted by me (1pt min.). @ -yes negative for acute disease CT interpreted by me (1pt min.). @ -no U/S interpreted by me (1pt. min.). @ -no What testing was considered but not performed or refused? (CT, X-rays, U/S, labs)? Why? @ -none What meds were considered but not given or refused? Why? @ -none Did you discuss the management of the patient with other professionals (professionals i.e. , PA, PAYROLL TAX ANALYST, lab, RT, psych nurse, social services counselor, criminal justice lawyer, teacher, revenue officer, oil field caser)? Give summary @ -no Was smoking cessation discussed for >3mins.? @ -no Was critical care preformed (if so, how long)? @ -no Were there social determinants of health that impacted care today? How? (Homelessness, low income, unemployed, alcoholism, drug addiction, transportation, low edu. Level, literacy, decrease access to med. care, senior living, rehab)? @ -none Was there de-escalation of care discussed even if they declined (Discuss DNR or withdrawal of care, Hospice)? DNR status @ -no What co-morbidities impacted this encounter? (DM, HTN, Smoking, COPD, CAD, Cancer, CVA, ARF, Chemo, Hep., AIDS, mental health diagnosis, sleep apnea, morbid obesity)? @ -none Was patient admitted / discharged? Hospital course, mention meds given and route, prescriptions, significant lab abnormalities, going to OR and other p ertinent info. @ - Undiagnosed new problem with uncertain prognosis? @ -no Drug Therapy requiring intensive monitoring for toxicity (Heparin, Nitro, Insulin, Cardizem)? @ -no Were any procedures done? @ -no Diagnosis/symptom? @ - Acute, or Chronic, or Acute on Chronic? @ -Acute Uncomplicated (without systemic symptoms) or Complicated (systemic symptoms)? @ -Complicated Side effects of treatment? @ -no Exacerbation, Progression, or Severe Exacerbation? @ -exacerbation Poses a threat to life or bodily function? How? (Chest pain, [place], [place], pneumonia, PE, COPD, DKA, ARF, appy, cholecystitis, CVA, Diverticulitis, Homicidal, Suicidal, threat to staff... and all critical care pts) @ -yes - Consultations Consultation #1: Spoke with [facility] who agrees to admit this patient Medical Decision Making - Medical Decision Making 29 male will be admitted for alcohol withdrawal symptoms, nausea vomiting tremor confusion. Patient having alcohol withdrawal here in the ER - Lab Data Result diagrams: 12/14/24 19:05 12/14/24 19:05 Lab Results 12/14/24 12/14/24 Range/Units 19:05 19:05 WBC 14.56 H (4.50-10.00) 10*3/uL RBC 5.85 H (4.40-5.60) 10*6/uL Hgb 17.4 H (13.0-17.0) g/dL Hct 49.6 (39.6-50.0) % MCV 84.8 (80.0-97.0) fL MCH 29.7 (27.0-32.0) pg MCHC 35.1 (32.0-37.0) g/dL Plt Count 244 (140-440) 10*3/uL MPV 11.2 (9.5-12.2) fL Immature Gran % (Auto) 0.2 % Neutrophils % 59.1 % Lymphocytes % 33.7 % Monocytes % 6.4 % Eosinophils % 0.3 % Basophils % 0.3 % Immature Gran # 0.03 (0.00-0.04) 10*3/uL Neutrophils # 8.60 H (1.80-7.70) 10*3/uL Lymphocytes # 4.90 (0.90-5.00) 10*3/uL Monocytes # 0.93 (0.20-1.00) 10*3/uL Eosinophils # 0.05 (0.04-0.35) 10*3/uL Basophils # 0.05 (0.00-0.10) 10*3/uL Sodium 138 (137-145) mmol/L Potassium 3.8 (3.5-5.1) mmol/L Chloride 104 (98-107) mmol/L Carbon Dioxide 21 L (22-30) mmol/L Anion Gap 13 mmol/L BUN 13 (9-20) mg/dL Creatinine 0.98 (0.66-1.25) mg/dL Est GFR (CKD-EPI)AfAm >90 (>60 ml/min/1.73 sqM) Est GFR (CKD-EPI)NonAf >90 (>60 ml/min/1.73 sqM) Glucose 88 (74-99) mg/dL Calcium 10.0 (8.4-10.2) mg/dL Phosphorus 2.1 L (2.5-4.5) mg/dL Magnesium 1.8 (1.6-2.3) mg/dL Total Bilirubin 1.1 (0.2-1.3) mg/dL AST 33 (17-59) U/L ALT 40 (4-49) U/L Alkaline Phosphatase 73 (38-126) U/L Total Protein 7.7 (6.3-8.2) g/dL Albumin 4.9 (3.5-5.0) g/dL Lipase 52 (23-300) U/L Serum Alcohol <10 mg/dL Disposition Clinical Impression: Alcoholic intoxication, Alcohol withdrawal syndrome Disposition: ADMITTED IP TO THIS HOSP Condition: Good Is patient prescribed a controlled substance at d/c from ED?: No Referrals: Evelyn Fink MD [Primary Care Provider] - 1-2 days Time of Disposition: 21:00
[2024-12-14] MEDS ORDERED: LORazepam 2 MG/ML INJ IV PRN ×3 (18:53)
[2024-12-14] MEDS ORDERED: LORazepam 1 MG TAB PO PRN ×3 (18:53)
[2024-12-14] MEDS: SODIUM CHLORIDE 0.9% 1,000 ML IV STA (19:10)
[2024-12-14] MEDS: ONDANSETRON 4 MG/2 ML VIAL IVP STA (19:11)
[2024-12-14] MEDS: LORazepam 2 MG/ML INJ IV STA (19:14)
[2024-12-14 19:16] LABS: Basophils # (A) 0.05 10*3/uL (0.00-0.10); Basophils % (A) 0.3 %; Eosinophils # (A) 0.05 10*3/uL (0.04-0.35); Eosinophils % (A) 0.3 %; HCT 49.6 % (39.6-50.0); HGB 17.4 g/dL (13.0-17.0); Lymphocytes % (A) 33.7 %; MCH 29.7 pg (27.0-32.0); MCHC 35.1 g/dL (32.0-37.0); MCV 84.8 fL (80.0-97.0); Mean Platelet Volume 11.2 fL (9.5-12.2); Monocytes # (A) 0.93 10*3/uL (0.20-1.00); Monocytes % (A) 6.4 %; Neutrophils % (A) 59.1 %; Platelet Count 244 10*3/uL (140-440); RBC 5.85 10*6/uL (4.40-5.60); RDW 13.2 % (11.5-14.5); WBC 14.56 10*3/uL (4.50-10.00)
[2024-12-14 19:37] LABS: ALT 40 U/L (4-49); African American GFR (CKD) >90 (>60 ml/min/1.73 sqM); Albumin 4.9 g/dL (3.5-5.0); Alcohol <10 mg/dL; Anion Gap 13 mmol/L; Blood Urea Nitrogen 13 mg/dL (9-20); Carbon Dioxide 21 mmol/L (22-30); Chloride 104 mmol/L (98-107); Glucose 88 mg/dL (74-99); Lipase 52 U/L (23-300); Non-African American GFR(CKD) >90 (>60 ml/min/1.73 sqM); Sodium 138 mmol/L (137-145); Total Bilirubin 1.1 mg/dL (0.2-1.3); Total Protein 7.7 g/dL (6.3-8.2)
[2024-12-14 19:41] LABS: AST 33 U/L (17-59); Alkaline Phosphatase 73 U/L (38-126); Magnesium 1.8 mg/dL (1.6-2.3); Phosphorus 2.1 mg/dL (2.5-4.5); Potassium 3.8 mmol/L (3.5-5.1)
[2024-12-14] MEDS: LORazepam 0.5 MG TAB PO PRN (21:08)
[2024-12-14] MEDS ORDERED: ONDANSETRON 4 MG/2 ML VIAL IVP PRN (21:25)
[2024-12-14] MEDS ORDERED: NALOXONE 0.4 MG/ML 1 ML VIAL IV PRN (21:25)
[2024-12-14] MEDS: DEXTROSE 5%-0.45% NACL 1,000 ML IV ONE (21:37)
[2024-12-15 04:31] LABS: Basophils # (A) 0.05 10*3/uL (0.00-0.10); Basophils % (A) 0.5 %; Eosinophils # (A) 0.09 10*3/uL (0.04-0.35); Eosinophils % (A) 0.8 %; HCT 46.4 % (39.6-50.0); HGB 15.9 g/dL (13.0-17.0); Lymphocytes # (A) 4.46 10*3/uL (0.90-5.00); Lymphocytes % (A) 40.3 %; MCH 29.7 pg (27.0-32.0); MCHC 34.3 g/dL (32.0-37.0); MCV 86.7 fL (80.0-97.0); Mean Platelet Volume 11.4 fL (9.5-12.2); Monocytes # (A) 0.62 10*3/uL (0.20-1.00); Monocytes % (A) 5.6 %; Neutrophils # (A) 5.83 10*3/uL (1.80-7.70); Neutrophils % (A) 52.7 %; Platelet Count 224 10*3/uL (140-440); RBC 5.35 10*6/uL (4.40-5.60); RDW 13.2 % (11.5-14.5); WBC 11.06 10*3/uL (4.50-10.00)
[2024-12-15 04:57] LABS: ALT 36 U/L (4-49); AST 25 U/L (17-59); African American GFR (CKD) >90 (>60 ml/min/1.73 sqM); Albumin 4.2 g/dL (3.5-5.0); Alkaline Phosphatase 62 U/L (38-126); Anion Gap 12 mmol/L; Blood Urea Nitrogen 11 mg/dL (9-20); Calcium 9.1 mg/dL (8.4-10.2); Carbon Dioxide 21 mmol/L (22-30); Chloride 105 mmol/L (98-107); Glucose 80 mg/dL (74-99); Magnesium 1.9 mg/dL (1.6-2.3); Non-African American GFR(CKD) >90 (>60 ml/min/1.73 sqM); Phosphorus 4.3 mg/dL (2.5-4.5); Sodium 138 mmol/L (137-145); Total Bilirubin 0.9 mg/dL (0.2-1.3); Total Protein 6.7 g/dL (6.3-8.2)
[2024-12-15] MEDS: FOLIC ACID 1 MG TAB PO SCH (09:45)
[2024-12-15] MEDS: MULTIVITAMINS, THERA 1 EACH TAB PO SCH (09:45)
[2024-12-15] MEDS: LORazepam 1 MG TAB PO PRN (09:45)
--- NOTE | 2024-12-15 12:19 | P.HPIM ---
History of Present Illness Patient is 29-year-old male came in with complaints of nausea vomiting excessive sweating patient was undergoing alcohol withdrawals. Patient does drink more than a pint of hard liquor every day. Patient wanted to quit alcohol patient has drink was yesterday morning at 11 AM. Patient was started on alcohol withdrawal precautions. Patient had leukocytosis without any clinical evidence of infection. Patient denied any significant abdominal pain at this time nausea and vomiting improved. Patient's MCV is within normal limits REVIEW OF SYSTEMS: All other systems are negative except those mentioned in the HPI PHYSICAL EXAMINATION: GENERAL: The patient is alert and oriented x3, not in any acute distress. Well developed, well nourished. HEENT: Pupils are round and equally reacting to light. EOMI. No scleral icterus. No conjunctival pallor. Normocephalic, atraumatic. No pharyngeal erythema. No thyromegaly. CARDIOVASCULAR: S1 and S2 present. No murmurs, rubs, or gallops. PULMONARY: Chest is clear to auscultation, no wheezing or crackles. ABDOMEN: Soft, nontender, nondistended, normoactive bowel sounds. No palpable organomegaly. MUSCULOSKELETAL: No joint swelling or deformity. EXTREMITIES: No cyanosis, clubbing, or pedal edema. NEUROLOGICAL: Gross neurological examination did not reveal any focal deficits. SKIN: No rashes. Assessment and plan -Alcohol withdrawal patient is on Ativan CIWA protocol will add Librium as well. Alcohol abuse: Counseling was provided social work will be consulted. Thiamine supplementation - Leukocytosis reactive without any clinical evidence of infection at this time DVT prophylaxis: Early ambulation Past Medical History Past Medical History: Hypertension History of Any Multi-Drug Resistant Organisms: None Reported Past Surgical History: No Surgical Hx Reported Past Psychological History: Anxiety, Depression Smoking Status: Current every day smoker Past Alcohol Use History: Abuse, Daily, Heavy Past Drug Use History: Marijuana Medications and Allergies Home Medications Medication Instructions Recorded Confirmed Type Ibuprofen 800 mg PO Q8H #21 tab 12/04/24 12/15/24 Rx Metoprolol Tartrate [Lopressor] 25 mg PO DAILY 12/15/24 12/15/24 History PARoxetine [Paxil] See Taper PO DAILY 12/15/24 12/15/24 History amLODIPine [Norvasc] 2.5 mg PO DAILY 12/15/24 12/15/24 History traZODone HCL [Desyrel] See Taper PO HS 12/15/24 12/15/24 History Allergies Allergy/AdvReac Type Severity Reaction Status Date / Time No Known Allergies Allergy Verified 12/15/24 11:24 Physical Exam Vitals: Vital Signs Temp Pulse Pulse Resp BP BP Pulse Ox 12/15/24 11:27 97.7 F 77 18 145/87 95 12/15/24 09:40 94 18 125/97 98 12/15/24 02:52 81 16 141/92 99 12/15/24 00:15 88 16 132/90 98 12/14/24 20:59 96 18 133/87 97 12/14/24 19:15 104 H 26 H 155/104 97 12/14/24 18:38 98.0 F 111 H 18 149/96 98 Intake and Output 12/14/24 12/15/24 12/15/24 22:59 06:59 14:59 Other: Weight 113.398 kg 113.398 kg Results CBC & Chem 7: 12/15/24 04:14 12/15/24 04:14 Labs: Abnormal Lab Results - Last 24 Hours (Table) 12/14/24 12/14/24 12/15/24 Range/Units 19:05 19:05 04:14 WBC 14.56 H 11.06 H (4.50-10.00) 10*3/uL RBC 5.85 H (4.40-5.60) 10*6/uL Hgb 17.4 H (13.0-17.0) g/dL Neutrophils # 8.60 H (1.80-7.70) 10*3/uL Carbon Dioxide 21 L (22-30) mmol/L Phosphorus 2.1 L (2.5-4.5) mg/dL 12/15/24 Range/Units 04:14 WBC (4.50-10.00) 10*3/uL RBC (4.40-5.60) 10*6/uL Hgb (13.0-17.0) g/dL Neutrophils # (1.80-7.70) 10*3/uL Carbon Dioxide 21 L (22-30) mmol/L Phosphorus (2.5-4.5) mg/dL Thrombosis Risk Factor Assmnt - Choose All That Apply Each Factor Represents 1 point: Obesity (BMI >25) Thrombosis Risk Factor Assessment Total Risk Factor Score: 1 Thrombosis Risk Factor Assessment Level: Low Risk
[2024-12-15] MEDS: KETOROLAC 15 MG/ML 1 ML VIAL IVP PRN (12:28)
[2024-12-15] MEDS ORDERED: LORazepam 1 MG/0.5 ML VIAL IV PRN ×3 (14:27→14:28)
[2024-12-15] MEDS: KETOROLAC 15 MG/ML 1 ML VIAL IVP SCH (14:39)
[2024-12-15] MEDS: HYDROcodone/APAP 7.5-325MG 1 EACH TAB PO PRN (16:17)
[2024-12-15] MEDS: THIAMINE 100 MG TAB PO SCH (20:18)
[2024-12-15] MEDS: chlordiazePOXIDE 25 MG CAP PO SCH (20:19)
[2024-12-15] MEDS: BUTALB/APAP/CAFF 50-325-40MG TAB PO PRN (21:06)
[2024-12-16 07:50] VITALS: RESP 18
[2024-12-16] MEDS: PANTOPRAZOLE 40 MG TABLET PO SCH (08:07)
[2024-12-16 13:25] VITALS: BP 138/84; PULSE 101; TEMP 99.3
--- NOTE | 2024-12-16 14:43 | P.DS ---
Providers Date of admission: 12/14/24 21:25 Expected date of discharge: 12/16/24 Attending physician: Dustin Nguyễn Primary care physician: [facility] Hospital Course: Discharge diagnoses; #Alcohol withdrawal #Alcohol abuse #Leukocytosis, reactive Hospital course; Patient is 29-year-old male came in with complaints of nausea vomiting excessive sweating patient was undergoing alcohol withdrawals. Patient does drink more than a pint of hard liquor every day. Patient wanted to quit alcohol patient has drink was yesterday morning at 11 AM. Patient was started on alcohol withdrawal precautions. Patient had leukocytosis without any clinical evidence of infection. Patient denied any significant abdominal pain at this time nausea and vomiting improved. Patient's MCV is within normal limits Patient discharged in stable condition to home. He will begin Librium taper. Also recommended to begin vitamins which have been prescribed. Recommend alcohol abstinence. He has been given resources for AA. Follow-up with PCP. PHYSICAL EXAMINATION: Vitals reviewed GENERAL: The patient is alert and oriented x3, not in any acute distress. Well developed, well nourished. CARDIOVASCULAR: S1 and S2 present. No murmurs, rubs, or gallops. PULMONARY: Chest is clear to auscultation, no wheezing or crackles. ABDOMEN: Soft, nontender, nondistended, normoactive bowel sounds. No palpable organomegaly. MUSCULOSKELETAL: No joint swelling or deformity. EXTREMITIES: No cyanosis, clubbing, or pedal edema. NEUROLOGICAL: Gross neurological examination did not reveal any focal deficits. SKIN: No rashes. Dr. Davalos seen patient with resident, present during exam, and agreed with findings. Dictation was produced using [employer] dictation software. please excuse any grammatical, word or spelling errors. Patient Condition at Discharge: Stable Plan - Discharge Summary New Discharge Prescriptions: New Folic Acid 1 mg PO DAILY #30 tab chlordiazePOXIDE HCl [Librium] 25 mg PO BID #20 cap Thiamine [Vitamin B-1] 100 mg PO BID #30 tab Multivitamins, Thera [Multivitamin (formulary)] 1 each PO DAILY #30 tab Continue traZODone HCL [Desyrel] See Taper PO HS amLODIPine [Norvasc] 2.5 mg PO DAILY PARoxetine [Paxil] See Taper PO DAILY Metoprolol Tartrate [Lopressor] 25 mg PO DAILY Ibuprofen 800 mg PO Q8H #21 tab Discharge Medication List Ibuprofen 800 mg PO Q8H #21 tab 12/04/24 [Rx] Metoprolol Tartrate [Lopressor] 25 mg PO DAILY 12/15/24 [History] PARoxetine [Paxil] See Taper PO DAILY 12/15/24 [History] amLODIPine [Norvasc] 2.5 mg PO DAILY 12/15/24 [History] traZODone HCL [Desyrel] See Taper PO HS 12/15/24 [History] Folic Acid 1 mg PO DAILY #30 tab 12/16/24 [Rx] Multivitamins, Thera [Multivitamin (formulary)] 1 each PO DAILY #30 tab 12/16/24 [Rx] Thiamine [Vitamin B-1] 100 mg PO BID #30 tab 12/16/24 [Rx] chlordiazePOXIDE HCl [Librium] 25 mg PO BID #20 cap 12/16/24 [Rx] Follow up Appointment(s)/Referral(s): Evelyn Fink MD [Primary Care Provider] - 1-2 days (The office will call you with an appointment time and date if you do not here from them please call.) Patient Instructions/Handouts: Abuse of Alcohol (DC), Alcohol Dependence (DC) Discharge/Stand Alone Forms: [facility] Discharge Disposition: HOME SELF-CARE
== END 2024-12-16 15:08 | disposition home or self-care (01) ==
LOC: EC 18:36 → 1SOBS 21:25 → 5NMEDONC 22:57
PROVIDERS: ADMIT Hospitalist; ATTEND Hospitalist
DX: F10.239 Alcohol dependence with withdrawal, unspecified (principal); F17.200 Nicotine dependence, unspecified, uncomplicated; D72.829 Elevated white blood cell count, unspecified; E66.9 Obesity, unspecified; Z68.33 Body mass index [BMI] 33.0-33.9, adult; Z79.899 Other long term (current) drug therapy; Y90.0 Blood alcohol level of less than 20 mg/100 ml; Z71.41 Alcohol abuse counseling and surveillance of alcoholic
CPT/HCPCS: 96375 ×2; 96361; 96374; 99285; 36415; 80053 ×2; 83690; 83735 ×2; 84100 ×2; 85025 ×2; 80320; G0378 ×4; J2060; J2405; J1885

== ENCOUNTER 2024-12-16 19:34 | Emergency (ER) | payer MEDICARE, OTHER ==
[2024-12-16 19:40] VITALS: RESP 20
--- NOTE | 2024-12-16 20:47 | ED ---
General Adult HPI - General Chief complaint: Alcohol Stated complaint: ETOH Time Seen by Provider: 12/16/24 19:43 Source: patient Mode of arrival: ambulatory Limitations: no limitations - History of Present Illness Initial comments: Dictation was produced using [employer] dictation software. please excuse any grammatical, word or spelling errors. Chief Complaint: 29-year-old male presents after fall History of Present Illness: Patient 29-year-old male just discharged from the hospital couple hours ago. He was discharged after being admitted for alcohol withdrawal. He was prescribed Librium taper to take at home. He got home when he slipped and fell in the bathroom. Denies any loss of consciousness. Patient states he feels a little shaky. He took his first dose from his Librium taper prescription. Patient complain of some mild head pain. The ROS documented in this emergency department record has been reviewed and confirmed by me. Those systems with pertinent positive or negative responses have been documented in the HPI. All other systems are other negative and/or noncontributory. - Related Data Home Medications Medication Instructions Recorded Confirmed Metoprolol Tartrate [Lopressor] 25 mg PO DAILY 12/15/24 12/15/24 PARoxetine [Paxil] See Taper PO DAILY 12/15/24 12/15/24 amLODIPine [Norvasc] 2.5 mg PO DAILY 12/15/24 12/15/24 traZODone HCL [Desyrel] See Taper PO HS 12/15/24 12/15/24 Previous Rx's Medication Instructions Recorded Ibuprofen 800 mg PO Q8H #21 tab 12/04/24 Folic Acid 1 mg PO DAILY #30 tab 12/16/24 Multivitamins, Thera [Multivitamin 1 each PO DAILY #30 tab 12/16/24 (formulary)] Thiamine [Vitamin B-1] 100 mg PO BID #30 tab 12/16/24 chlordiazePOXIDE HCl [Librium] 25 mg PO BID #20 cap 12/16/24 Allergies Allergy/AdvReac Type Severity Reaction Status Date / Time No Known Allergies Allergy Verified 12/16/24 19:40 Review of Systems ROS Statement: Those systems with pertinent positive or pertinent negative responses have been documented in the HPI. ROS Other: All systems not noted in ROS Statement are negative. Past Medical History Past Medical History: Hypertension History of Any Multi-Drug Resistant Organisms: None Reported Past Surgical History: No Surgical Hx Reported Past Psychological History: Anxiety, Depression Smoking Status: Current every day smoker Past Alcohol Use History: Abuse, Daily, Heavy Past Drug Use History: Marijuana General Exam - General Exam Comments Initial Comments: PHYSICAL EXAM: General Impression: Alert and oriented x3, not in acute distress HEENT: Normocephalic atraumatic, extra-ocular movements intact, pupils equal and reactive to light bilaterally, mucous membranes moist. Cardiovascular: Heart regular rate and rhythm Chest: Able to complete full sentences, no retractions, no tachypnea Abdomen: abdomen soft, non-tender, non-distended, no organomegaly Musculoskeletal: Pulses present and equal in all extremities, no peripheral edema Motor: no focal deficits noted Neurological: CN II-XII grossly intact, no focal motor or sensory deficits noted Skin: Intact with no visualized rashes Psych: Normal affect and mood Limitations: no limitations Course Vital Signs 12/16/24 12/16/24 12/16/24 19:36 20:19 22:05 Temperature 99.1 F 98.1 F Pulse Rate 114 H 86 72 Respiratory 20 20 20 Rate Blood Pressure 147/113 133/90 128/81 O2 Sat by Pulse 97 99 99 Oximetry EKG Findings - EKG Comments: EKG Findings:: My EKG interpretation: Ventricular rate 92, sinus rhythm, MT 152, QRS 106, QTc 392. No MT prolongation, no QTC prolongation, no ST or T-wave changes noted. Overall, this EKG is unremarkable Medical Decision Making - Medical Decision Making Was pt. sent in by a medical professional or institution (, PA, PRODUCTION MECH[employer]IC [employer], urgent care, hospital, or long term...) When possible be specific @ -No Did you speak to anyone other than the patient for history (EMS, parent, family, police, friend...)? What history was obtained from this source @ -No Did you review nursing and triage notes (agree or disagree)? Why? @ -I reviewed and agree with nursing and triage notes Were old charts reviewed (outside hosp., previous admission, EMS record, old EKG, old radiological studies, urgent care reports/EKG's, long term records)? Report findings @ -No old charts were reviewed Differential Diagnosis (chest pain, altered mental status, abdominal pain women, abdominal pain men, vaginal bleeding, musculoskeletal, weakness, fever, dyspnea, syncope, headache, dizziness, GI bleed, back pain, seizure, CVA, palpatations, mental health)? @ -Skull fracture, head contusion, neck strain EKG interpreted by me (3pts min.). @ -See above X-rays interpreted by me (1pt min.). @ -None done CT interpreted by me (1pt min.). @ -CT brain is nonacute U/S interpreted by me (1pt. min.). @ -None done What testing was considered but not performed or refused? (CT, X-rays, U/S, labs)? Why? @ -None What meds were considered but not given or refused? Why? @ -None Was smoking cessation discussed for >3mins.? @ -No Were there social determinants of health that impacted care today? How? (Homele ssness, low income, unemployed, alcoholism, drug addiction, transportation, low edu. Level, literacy, decrease access to med. care, group home, rehab)? @ -No Was there de-escalation of care discussed even if they declined (Discuss DNR or withdrawal of care, Hospice)? DNR status @ -No What co-morbidities impacted this encounter? (DM, HTN, Smoking, COPD, CAD, Cancer, CVA, ARF, Chemo, Hep., AIDS, mental health diagnosis, sleep apnea, morbid obesity)? @ -None Was patient admitted / discharged? Hospital course, mention meds given and route, prescriptions, significant lab abnormalities, going to OR and other pertinent info. @ -29-year-old male presents emergency department after fall. Patient well- appearing at the bedside. Vital signs are stable. Laboratory evaluation unremarkable. CT brain is negative. Patient evaluated at 10:23 PM resting comfortably showing no signs of alcohol withdrawal. Upon waking the patient up he started to shake voluntarily. Suspect malingering. Nonetheless patient told that he was being discharged and was agreeable. Return precautions discussed. Did you discuss the management of the patient with other professionals (professionals i.e. , PA, PRODUCTION MECH[employer]IC [employer], lab, RT, psych nurse, case management social worker, community mental health worker, teacher, international first officer, employment case manager)? Give summary @ -No Was critical care preformed (if so, how long)? @ -No Undiagnosed new problem with uncertain prognosis? @ -No Drug Therapy requiring intensive monitoring for toxicity (Heparin, Nitro, Insulin, Cardizem)? @ -No Were any procedures done? @ -No Diagnosis/symptom? Acute, or Chronic, or Acute on Chronic? Uncomplicated (without systemic symptoms) or Complicated (systemic symptoms)? @ -Head contusion Side effects of treatment? @ -No Exacerbation, Progression, or Severe Exacerbation? @ -No Poses a threat to life or bodily function? How? (Chest pain, [place], [place], pneumonia, PE, COPD, DKA, ARF, appy, cholecystitis, CVA, Diverticulitis, Homicidal, Suicidal, threat to staff... and all critical care pts) @ -No - Lab Data Result diagrams: 12/16/24 20:56 12/16/24 20:56 Lab Results 12/16/24 12/16/24 Range/Units 20:56 20:56 WBC 11.56 H (4.50-10.00) 10*3/uL RBC 6.00 H (4.40-5.60) 10*6/uL Hgb 17.7 H (13.0-17.0) g/dL Hct 52.4 H (39.6-50.0) % MCV 87.3 (80.0-97.0) fL MCH 29.5 (27.0-32.0) pg MCHC 33.8 (32.0-37.0) g/dL Plt Count 215 (140-440) 10*3/uL MPV 11.2 (9.5-12.2) fL Immature Gran % (Auto) 0.3 % Neutrophils % 60.0 % Lymphocytes % 34.4 % Monocytes % 4.1 % Eosinophils % 0.9 % Basophils % 0.3 % Immature Gran # 0.03 (0.00-0.04) 10*3/uL Neutrophils # 6.95 (1.80-7.70) 10*3/uL Lymphocytes # 3.98 (0.90-5.00) 10*3/uL Monocytes # 0.47 (0.20-1.00) 10*3/uL Eosinophils # 0.10 (0.04-0.35) 10*3/uL Basophils # 0.03 (0.00-0.10) 10*3/uL Sodium 142 (137-145) mmol/L Potassium 4.5 (3.5-5.1) mmol/L Chloride 103 (98-107) mmol/L Carbon Dioxide 29 (22-30) mmol/L Anion Gap 10 mmol/L BUN 16 (9-20) mg/dL Creatinine 0.91 (0.66-1.25) mg/dL Est GFR (CKD-EPI)AfAm >90 (>60 ml/min/1.73 sqM) Est GFR (CKD-EPI)NonAf >90 (>60 ml/min/1.73 sqM) Glucose 91 (74-99) mg/dL Calcium 10.0 (8.4-10.2) mg/dL Magnesium 2.1 (1.6-2.3) mg/dL Total Bilirubin 0.6 (0.2-1.3) mg/dL AST 31 (17-59) U/L ALT 51 H (4-49) U/L Alkaline Phosphatase 67 (38-126) U/L Total Protein 7.6 (6.3-8.2) g/dL Albumin 4.6 (3.5-5.0) g/dL Disposition Clinical Impression: Head contusion Disposition: HOME SELF-CARE Condition: Good Instructions (If sedation given, give patient instructions): Head Injury (ED) Is patient prescribed a controlled substance at d/c from ED?: No Referrals: Evelyn Fink MD [Primary Care Provider] - 1-2 days Time of Disposition: 22:26
[2024-12-16 21:01] LABS: Basophils # (A) 0.03 10*3/uL (0.00-0.10); Basophils % (A) 0.3 %; Eosinophils % (A) 0.9 %; HCT 52.4 % (39.6-50.0); HGB 17.7 g/dL (13.0-17.0); Lymphocytes # (A) 3.98 10*3/uL (0.90-5.00); Lymphocytes % (A) 34.4 %; MCH 29.5 pg (27.0-32.0); MCHC 33.8 g/dL (32.0-37.0); MCV 87.3 fL (80.0-97.0); Mean Platelet Volume 11.2 fL (9.5-12.2); Monocytes # (A) 0.47 10*3/uL (0.20-1.00); Monocytes % (A) 4.1 %; Neutrophils # (A) 6.95 10*3/uL (1.80-7.70); Platelet Count 215 10*3/uL (140-440); RDW 12.9 % (11.5-14.5); WBC 11.56 10*3/uL (4.50-10.00)
[2024-12-16 21:21] LABS: ALT 51 U/L (4-49); AST 31 U/L (17-59); African American GFR (CKD) >90 (>60 ml/min/1.73 sqM); Albumin 4.6 g/dL (3.5-5.0); Alkaline Phosphatase 67 U/L (38-126); Anion Gap 10 mmol/L; Blood Urea Nitrogen 16 mg/dL (9-20); Carbon Dioxide 29 mmol/L (22-30); Chloride 103 mmol/L (98-107); Glucose 91 mg/dL (74-99); Magnesium 2.1 mg/dL (1.6-2.3); Non-African American GFR(CKD) >90 (>60 ml/min/1.73 sqM); Potassium 4.5 mmol/L (3.5-5.1); Sodium 142 mmol/L (137-145); Total Bilirubin 0.6 mg/dL (0.2-1.3); Total Protein 7.6 g/dL (6.3-8.2)
--- NOTE | 2024-12-16 21:23 | CT ---
EXAMINATION TYPE: CT brain tiffanieine wo con DATE OF EXAM: 12/16/2024 9:19 PM COMPARISON: None. CLINICAL INDICATION: Male, 29 years old with history of fall, Pt presents to ED for detox. Pt states was discharged from hospital earlier today. Pt states last drink was 2 days ago., pain TECHNIQUE: CT of the brain is performed utilizing 3 mm thick sections through the posterior fossa and 3 mm thick sections through the remaining calvarium. Study is performed within 24 hours of arrival to the hospital. Contrast used: mL of , (none if empty) CT DLP: 1652.1 mGycm, Automated exposure control for dose reduction was used. FINDINGS: No abnormal hyperdensity is present to suggest an acute intracranial hemorrhage. No mass lesion is evident. No acute infarcts are evident. Ventricles and sulci are appropriate for the patient age. Paranasal sinuses and mastoid air cells within the [id number] are clear. Right septal deviation i s noted. IMPRESSIONS: 1. No acute intracranial process. Follow-up MRI can be performed as clinically indicated. CT cervical spine. COMPARISON: None TECHNIQUE: CT of the cervical spine is performed in the axial plane at 2 mm thick sections. Reconstr ucted images in the coronal, and sagittal plane are reviewed on the computer. FINDINGS: No acute fractures are evident. Vertebral body alignment is normal. Disc heights are preserved. Vertebral body heights are preserved. No spinal canal stenosis is evident. No neural foraminal stenosis is evident. IMPRESSION: 1. Normal CT cervical spine. [facility], , 12/16/2024 9:21 PM
[2024-12-16] MEDS: LORazepam 2 MG/ML INJ IV STA (22:07)
[2024-12-16 23:21] VITALS: BP 134/92; PULSE 77; TEMP 97.8
== END 2024-12-16 23:21 | disposition home or self-care (01) ==
LOC: EC 19:34
DX: S00.93XA Contusion of unspecified part of head, initial encounter (principal); F17.200 Nicotine dependence, unspecified, uncomplicated; W01.0XXA Fall on same level from slipping, tripping and stumbling without subsequent striking against object, initial encounter
CPT/HCPCS: 36415; 93005; 80053; 83735; 85025; 72125; 70450; 99284; 96374; J2060

== ENCOUNTER 2025-02-19 20:36 | Emergency (ER) | payer MEDICARE ==
[2025-02-19 20:48] VITALS: TEMP 98.3
[2025-02-19] MEDS: IPRATROPIUM-ALBUTEROL 3 ML NEB INHALATION STA (21:50)
[2025-02-19] MEDS: MOXIFLOXACIN HCL 0.5% DROPS 3 ML BTL BOTH EYES ONE (21:53)
[2025-02-19] MEDS: predniSONE 20 MG TAB PO STA (21:53)
--- NOTE | 2025-02-19 21:53 | XR ---
EXAMINATION TYPE: XR chest 2V DATE OF EXAM: 02/19/2025 9:48 PM COMPARISON: Chest radiographs from 12/03/2024 TECHNIQUE: XR chest 2V Frontal and lateral views of the chest. CLINICAL INDICATION:Male, 29 years old with history of cough; FINDINGS: Lungs/Pleura: There is no evidence of pleural effusion, focal consolidation, or pneumothorax. Pulmonary vascularity: Unremarkable. Heart/mediastinum: Cardiomediastinal silhouette is unremarkable. Musculoskeletal: No acute osseous pathology. IMPRESSION: No acute cardiopulmonary disease/process. [facility], , 02/19/2025 9:50 PM
[2025-02-19 22:24] LABS: Influenza A Not Detected (Not Detectd); Influenza B Not Detected (Not Detectd); RSV Not Detected (Not Detectd)
--- NOTE | 2025-02-19 23:44 | ED ---
General Adult HPI - General Chief complaint: Eye Problems Stated complaint: cough Time Seen by Provider: 02/19/25 21:20 Source: patient Mode of arrival: ambulatory Limitations: no limitations - History of Present Illness Initial comments: 26-year-old male who presents emergency department complaining of bilateral eye discharge, as well as cough and congestion. Symptoms have been ongoing for over 2 weeks. Seems to be worse lately. Presents for evaluation. Denies any fevers. Is a chronic tobacco user. No known history of asthma. Does have a history of alcohol abuse. Has a history of marijuana use. Denies any chest pain. Denies nausea vomiting diarrhea. Denies any blurry vision but states that it feels like there is a film over his eyes and he has a lot of somewhat purulent discharge especially the mornings. Presents for further evaluation at this time. - Related Data Home Medications Medication Instructions Recorded Confirmed Metoprolol Tartrate [Lopressor] 25 mg PO DAILY 12/15/24 12/15/24 PARoxetine [Paxil] See Taper PO DAILY 12/15/24 12/15/24 amLODIPine [Norvasc] 2.5 mg PO DAILY 12/15/24 12/15/24 traZODone HCL [Desyrel] See Taper PO HS 12/15/24 12/15/24 Previous Rx's Medication Instructions Recorded Ibuprofen 800 mg PO Q8H #21 tab 12/04/24 Folic Acid 1 mg PO DAILY #30 tab 12/16/24 Multivitamins, Thera [Multivitamin 1 each PO DAILY #30 tab 12/16/24 (formulary)] Thiamine [Vitamin B-1] 100 mg PO BID #30 tab 12/16/24 chlordiazePOXIDE HCl [Librium] 25 mg PO BID #20 cap 12/16/24 Albuterol Sulfate [Ventolin HFA] 1 - 2 puff INHALATION Q6H PRN #1 02/19/25 each Azithromycin [Zithromax] 250 mg PO DAILY 4 Days #4 tab 02/19/25 Moxifloxacin [Vigamox 0.5%] 1 drop BOTH EYES TID 7 Days #3 ml 02/19/25 predniSONE [Deltasone] 40 mg PO DAILY 5 Days #10 tab 02/19/25 Allergies Allergy/AdvReac Type Severity Reaction Status Date / Time No Known Allergies Allergy Verified 06/28/25 20:48 Review of Systems ROS Statement: Those systems with pertinent positive or pertinent negative responses have been documented in the HPI. Review of Systems: CONST: Denies fever EYES: Denies blurry vision ENT: Endorses nasal congestion, eye discharge C/V: Denies Chest pain RESP: Endorses cough GI: Denies abdominal pain : Denies dysuria SKIN: Denies rash. MSK: Denies joint pain. NEURO: Denies headache ROS Other: All systems not noted in ROS Statement are negative. Past Medical History Past Medical History: Hypertension History of Any Multi-Drug Resistant Organisms: None Reported Past Surgical History: No Surgical Hx Reported Past Psychological History: Anxiety, Depression Smoking Status: Current every day smoker Past Alcohol Use History: Abuse, Daily, Heavy Past Drug Use History: Marijuana General Exam - General Exam Comments Initial Comments: General: Appears in no acute distress. HEAD: Normal with no signs of head trauma. EYES: EOMI. Pupils equal round and reactive to light. Pupils are 3 mm and equal bilaterally. Patient does have some crusty discharge of his eyes. No significant purulence at this time but the patient states has been ongoing for a few weeks. It is bilateral. ENT: Hearing grossly intact, normal oropharynx. RESPIRATORY: Bilateral end expiratory wheezing. No hypoxia. No increased work of breathing. C/V: Regular rate and rhythm. S1 and S2 auscultated, peripheral pulses 2+ and intact throughout ABD: Abd is soft, nontender, nondistended EXT: Normal range of motion, no obvious deformity formerly SKIN: No rashes or lesions observed on exposed skin. NEURO: Alert and orient x 4. Limitations: no limitations Course Vital Signs 02/19/25 02/19/25 02/19/25 20:46 21:51 22:01 Temperature 98.3 F Pulse Rate 107 H 75 76 Respiratory 18 Rate Blood Pressure 153/97 O2 Sat by Pulse 96 Oximetry 02/20/25 00:05 Temperature Pulse Rate 90 Respiratory 16 Rate Blood Pressure 146/91 O2 Sat by Pulse 97 Oximetry Medical Decision Making - Medical Decision Making Was pt. sent in by a medical professional or institution (, PA, DEPUTY JAILER, urgent care, hospital, or senior living...) When possible be specific @ -No Did you speak to anyone other than the patient for history (EMS, parent, family, police, friend...)? What history was obtained from this source @ -No Did you review nursing and triage notes (agree or disagree)? Why? @ -I reviewed and agree with nursing and triage notes Were old charts reviewed (outside hosp., previous admission, EMS record, old EKG, old radiological studies, urgent care reports/EKG's, senior living records)? Report findings @ -No old charts were reviewed Differential Diagnosis (chest pain, altered mental status, abdominal pain women, abdominal pain men, vaginal bleeding, weakness, fever, dyspnea, syncope, headache, dizziness, GI bleed, back pain, seizure, CVA, palpatations, mental health, musculoskeletal)? @ -Viral syndrome, pneumonia, conjunctivitis, bronchitis. This list is not all inclusive. EKG interpreted by me (3pts min.). @ -None done X-rays interpreted by me (1pt min.). @ -Chest x-ray reveals no obvious acute cardiopulmonary process. CT interpreted by me (1pt min.). @ -None done U/S interpreted by me (1pt. min.). @ -None done What testing was considered but not performed or refused? (CT, X-rays, U/S, labs)? Why? @ -None What meds were considered but not given or refused? Why? @ -None Did you discuss the management of the patient with other professionals (professionals i.e. , PA, DEPUTY JAILER, lab, RT, psych nurse, 7th grade social studies teacher, analytical engineer, teacher, chief talent officer, case planner)? Give summary @ -No Was smoking cessation discussed for >3mins.? @ -No Was critical care preformed (if so, how long)? @ -No Were there social determinants of health that impacted care today? How? (Homelessness, low income, unemployed, alcoholism, drug addiction, transportation, low edu. Level, literacy, decrease access to med. care, fpc, rehab)? @ -No Was there de-escalation of care discussed even if they declined (Discuss DNR or withdrawal of care, Hospice)? DNR status @ -No What co-morbidities impacted this encounter? (DM, HTN, Smoking, COPD, CAD, Ca ncer, CVA, ARF, Chemo, Hep., AIDS, mental health diagnosis, sleep apnea, morbid obesity)? @ -None Was patient admitted / discharged? Hospital course, mention meds given and route, prescriptions, significant lab abnormalities, going to OR and other pertinent info. @ -Based on patient's presentation physical exam, presents emergency department complaining of what seems to be conjunctivitis as well as possible bronchitis versus pneumonia. Will obtain viral swabs, chest x-ray. Patient will be started on eyedrops, moxifloxacin. Vitals are within acceptable limits. He will be given steroids and a breathing treatment. Patient was in agreement this plan. Chest x-ray unremarkable. Viral swabs negative. After the patient and breath sounds are improved. He will be discharged home on steroids, given a dose of azithromycin given prescription for azithromycin, as well as albuterol inhaler for tracheobronchitis. Patient will be prescribed moxifloxacin drops for his conjunctivitis. Recommend follow-up with his PCP. He was in agreement this plan. Strict return precautions discussed. I instructed the patient to follow up with their PCP in the next 1-3 days. I explained that the patient should return to the emergency department if they experience any worsening symptoms. Strict return precautions were discussed with the patient. The patient expressed understanding of these instructions. I answered all questions that the patient had. The patient was discharged home in good condition with their prescriptions and follow up information. Undiagnosed new problem with uncertain prognosis? @ -No Drug Therapy requiring intensive monitoring for toxicity (Heparin, Nitro, Insulin, Cardizem)? @ -No Were any procedures done? @ -No Diagnosis/symptom? @ -Tracheobronchitis, conjunctivitis Acute, or Chronic, or Acute on Chronic? @ -Acute Uncomplicated (without systemic symptoms) or Complicated (systemic symptoms)? @ -Uncomplicated Side effects of treatment? @ -No Exacerbation, Progression, or Severe Exacerbation? @ -No Poses a threat to life or bodily function? How? (Chest pain, [place], [place], pneumonia, PE, COPD, DKA, ARF, appy, cholecystitis, CVA, Diverticulitis, Homicidal, Suic idal, threat to staff... and all critical care pts) @ -Unlikely at this time - Lab Data Lab Results 02/19/25 Range/Units 21:37 Influenza Type A (PCR) Not Detected (Not Detectd) Influenza Type B (PCR) Not Detected (Not Detectd) RSV (PCR) Not Detected (Not Detectd) SARS-CoV-2 (PCR) Not Detected (Not Detectd) Disposition Clinical Impression: Conjunctivitis, Tracheobronchitis Disposition: HOME SELF-CARE Condition: Good Instructions (If sedation given, give patient instructions): Acute Bronchitis (ED), Conjunctivitis (ED) Prescriptions: predniSONE [Deltasone] 40 mg PO DAILY 5 Days #10 tab Albuterol Sulfate [Ventolin HFA] 1 - 2 puff INHALATION Q6H PRN #1 each PRN Reason: Dyspnea Moxifloxacin [Vigamox 0.5%] 1 drop BOTH EYES TID 7 Days #3 ml Azithromycin [Zithromax] 250 mg PO DAILY 4 Days #4 tab Is patient prescribed a controlled substance at d/c from ED?: No Referrals: Evelyn Fink MD [Primary Care Provider] - 1-2 days Time of Disposition: 23:40
[2025-02-20] MEDS: AZITHROMYCIN 500 MG TAB PO STA
[2025-02-20 00:06] VITALS: BP 146/91; PULSE 90; RESP 16
== END 2025-02-20 00:06 | disposition home or self-care (01) ==
LOC: EC 20:36
DX: H10.9 Unspecified conjunctivitis (principal); J40 Bronchitis, not specified as acute or chronic; F17.200 Nicotine dependence, unspecified, uncomplicated
CPT/HCPCS: 94640; 87636; 71046; 99284; J7512